=== PATIENT | male | born 1950 | race Caucasian/White ===

== ENCOUNTER → 2018-02-13 | Outpatient (CLI) | payer MEDICARE ==
--- NOTE | 2018-02-13 17:05 | RAD ---
Right RIBS with chest, 3 views, 02/13/2018: HISTORY: Rib injury No right rib fracture is identified. There is no evidence of underlying pneumothorax, hemothorax or pulmonary infiltrate. The heart size is normal. IMPRESSION: No acute right rib abnormality is detected. Electronically signed by: Galindo Wright MD (02/13/2018 5:02 PM) [facility]
== END | disposition home or self-care (01) ==
LOC: PMG 15:41
PROVIDERS: ATTEND Physician Assistant Medical
DX: S29.8XXD Other specified injuries of thorax, subsequent encounter (principal); X58.XXXD Exposure to other specified factors, subsequent encounter
CPT/HCPCS: 71101

== ENCOUNTER → 2018-11-17 | Outpatient (CLI) | payer MEDICARE ==
--- NOTE | 2018-11-17 12:46 | RAD ---
EXAM: Right hand, 3 views. HISTORY: Pain. COMPARISON: None. FINDINGS: 3 views of the right hand are obtained. There is no fracture, dislocation or subluxation. There is first interphalangeal joint spurring. IMPRESSION: 1. Mild first interphalangeal joint osteoarthritis. 2. No acute osseous finding. Electronically signed by: Alisson Smith MD (11/17/2018 12:43 PM) [id number]
== END | disposition home or self-care (01) ==
LOC: DXRAD 11:17
PROVIDERS: ATTEND Orthopaedic Surgery
DX: M19.041 Primary osteoarthritis, right hand (principal)
CPT/HCPCS: 73130

== ENCOUNTER → 2020-05-25 | Outpatient (CLI) | payer MEDICARE ==
--- NOTE | 2020-05-25 08:51 | RAD ---
PROCEDURE: XR FOOT_LEFT 3 VIEWS STUDY DATE: 05/25/2020 CLINICAL INDICATION / HISTORY: Reason: LEFT FOOT PAIN / Spl. Instructions: / History: . TECHNIQUE: AP, lateral and oblique views of the left foot. COMPARISON: None FINDINGS: No fracture or dislocation is identified. The bone density is normal. The joint space width s are maintained, and there are no erosions to suggest an inflammatory arthropathy. No soft tissue ab normality is seen. IMPRESSION: No acute osseous abnormality. Electronically signed by: Michelel Steen MD (05/25/2020 8:48 AM) [id number]
== END ==
LOC: PMG 08:11
PROVIDERS: ATTEND Nurse Practitioner Family
DX: M79.672 Pain in left foot (principal)
CPT/HCPCS: 73630